=== PATIENT | female | born 1940 | race Caucasian/White ===

== ENCOUNTER 2016-12-25 09:47 | Outpatient (CLI) | payer MEDICARE, BC ==
--- NOTE | 2016-12-25 13:39 | Ultrasound Report ---
COMPLETE ABDOMINAL ULTRASOUND: 12/25/2016 CLINICAL HISTORY: Hepatomegaly new onset. The patient has normal LFTs. The patient also has negative test for hepatitis C. TECHNIQUE: Real-time scanning was performed with insurance account representative static images obtained. FINDINGS: The liver appears mildly enlarged with a length of 16.2 cm. Parenchymal pattern is mildly hyperechoic suggestive of benign fatty infiltration of the liver. The examination is negative for masses. Normal hepatopetal flow is noted. Gallbladder is normal without wall thickening or stones. The common hepatic and common bile ducts are mildly dilated with a diameter of 7 mm. This mild distention is nonspecific. No intrahepatic biliary dilatation is associated with it. No obvious obstruction is seen involving the distal common bile duct in its intrapancreatic portion. A contrast enhanced CT exam of the liver and pancreas will be helpful to further exclude an abnormality affecting the distal common bile duct. The pancreas appears mildly prominent with heterogeneous parenchymal pattern especially in its anterior aspect. This parenchymal pattern probably is a result of atypical benign fatty infiltration. Recommend a noncontrast and contrast enhanced CT exam of the pancreas to further confirm the benign origin of this finding and to exclude the possibility of inflammation involving the pancreas. The right kidney measures 9.9 cm without pyelocaliceal system distention. The left kidney measures 10.2 cm. There is a small cyst involving the lateral aspect of the left kidney measuring 2.6 cm by 1.9 cm by 1.7 cm. The spleen is normal in size and parenchymal pattern with a length of 7.7 cm. The abdominal aorta has normal diameters. Proximally, its diameter is 1.6 cm, in the mid aspect its diameter is 1.8 cm and in the distal aspect its diameter is 1.2 cm. Inferior vena cava appears normal. IMPRESSION: 1. MILD HEPATOMEGALY WITH THE PARENCHYMAL PATTERN SUGGESTIVE OF BENIGN FATTY INFILTRATION OF THE LIVER. 2. PANCREAS APPEARS MILDLY ENLARGED WITH A HETEROGENEOUS PARENCHYMAL PATTERN. ALSO, THERE IS MILD NONSPECIFIC DISTENTION OF THE COMMON HEPATIC AND COMMON BILE DUCTS WITHOUT INTRAHEPATIC BILIARY DILATATION. THESE FINDINGS ARE NONSPECIFIC. RECOMMEND NONCONTRAST AND CONTRAST ENHANCED CT EXAM OF THE LIVER AND PANCREAS FOR FURTHER EVALUATION. 3. BENIGN LEFT RENAL CYST IS NOTED MEASURING 2.6 CM BY 1.9 CM BY 1.7 CM. JOB #: [id number] EXT JOB #: [id number] [facility]
== END 2016-12-25 09:48 | disposition home or self-care (01) ==
LOC: DI 09:47
PROVIDERS: ATTEND Family Medicine
DX: R16.0 Hepatomegaly, not elsewhere classified (principal); Q61.01 Congenital single renal cyst
CPT/HCPCS: 76700

== ENCOUNTER 2021-01-31 11:43 | Outpatient (CLI) | payer MEDICARE, BC ==
[2021-01-31 15:12] LABS: BASOPHILS % (AUTO) 1.2 %; EOSINOPHILS # (AUTO) 0.1 10^3/uL (0.0-0.7); EOSINOPHILS % (AUTO) 1.4 %; HCT - HEMATOCRIT 42.5 % (37.0-47.0); HGB - HEMOGLOBIN 13.7 g/dL (12.0-16.0); LYMPHOCYTES # (AUTO) 1.2 10^3/uL (1.5-3.5); LYMPHOCYTES % (AUTO) 34.2 %; MEAN CORPUSCULAR HEMOGLOBIN 31.2 pg (27.0-31.0); MEAN CORPUSCULAR HGB CONC 32.2 g/dL (32.0-36.0); MEAN CORPUSCULAR VOLUME 96.8 fL (81.0-99.0); MEAN PLATELET VOLUME 10.4 fL (7.9-10.8); MONOCYTES # (AUTO) 0.3 10^3/uL (0.0-1.0); MONOCYTES % (AUTO) 9.6 %; NEUTROPHILS # (AUTO) 1.9 10^3/uL (1.5-6.6); NEUTROPHILS % (AUTO) 53.6 %; PLT - PLATELET COUNT 274 10^3/uL (130-450); RED BLOOD COUNT 4.39 10^6/uL (4.20-5.40); RED CELL DISTRIBUTION WIDTH 12.3 % (12.0-15.0); WHITE BLOOD COUNT 3.5 x10^3/uL (4.8-10.8)
[2021-01-31 15:55] LABS: ALBUMIN 4.7 g/dL (3.2-5.5); ALBUMIN/GLOBULIN RATIO 1.5 (1.0-2.2); ALKALINE PHOSPHATASE 55 IU/L (42-121); ALT ALANINE AMINOTRANSFERASE 19 IU/L (10-60); AST ASPARTATE AMINOTRANSFERASE 24 IU/L (10-42); BUN - BLOOD UREA NITROGEN 16 mg/dL (6-20); CALCIUM 10.4 mg/dL (8.5-10.3); CARBON DIOXIDE - CO2 29 mmol/L (21-32); CHLORIDE 98 mmol/L (101-111); CHOL/HDL RATIO 2.9 (<4.4); CHOLESTEROL 287 mg/dL; CREATININE 0.7 mg/dL (0.4-1.0); GFR - MDRD 81 (>89); GLUCOSE 92 mg/dL (70-100); HDL CHOLESTEROL 100 mg/dL; LDL CHOLESTEROL,CALCULATED 174 mg/dL; LDL/HDL RATIO 1.7 (<4.4); POTASSIUM 4.2 mmol/L (3.5-5.0); SODIUM 136 mmol/L (135-145); TOTAL PROTEIN 7.8 g/dL (6.7-8.2); TRIGLYCERIDES 63 mg/dL; VLDL CHOLESTEROL 13 mg/dL
== END 2021-01-31 11:44 | disposition home or self-care (01) ==
LOC: LAB.S 11:43
PROVIDERS: ATTEND Internal Medicine
DX: C44.91 Basal cell carcinoma of skin, unspecified (principal); M19.90 Unspecified osteoarthritis, unspecified site; M25.50 Pain in unspecified joint; H91.90 Unspecified hearing loss, unspecified ear; I10 Essential (primary) hypertension; Z13.6 Encounter for screening for cardiovascular disorders; Z79.899 Other long term (current) drug therapy
CPT/HCPCS: 36415; 80053; 80061; 82306; 83721; 84443; 85025

== ENCOUNTER 2021-06-20 15:02 | Outpatient (CLI) | payer MEDICARE, BC ==
--- NOTE | 2021-06-21 14:01 | Mammography Report ---
BILATERAL DIGITAL SCREENING MAMMOGRAM 3D/2D WITH CLEAVAGE: 06/20/2021 CLINICAL: Routine screening. Family history of breast cancer. Comparison is made to exams dated: 04/13/2018 mammogram, 12/23/2015 mammogram, 08/04/2014 mammogram, mammogram, and 07/23/2012 mammogram - [facility]. The tissue of both breasts is predominantly fatty. No significant masses, calcifications, or other findings are seen in either breast. There has been no significant interval change. IMPRESSION: NEGATIVE There is no mammographic evidence of malignancy. A 1 year screening mammogram is recommended. This exam was interpreted at Station ID: [id number]. NOTE: For mammograms, a report in lay terms will be sent to the patient. Approximately 15% of breast malignancies will not be visualized mammographically. In the management of a palpable breast mass, a negative mammogram must not discourage biopsy of a clinically suspicious lesion. Electronically Signed By: Jose Solomon acr/penrad:06/20/2021 16:01:16 ACR BI-RADS Category 1: Negative 3341F PARENCHYMAL PATTERN: (F) - The breast(s) demonstrate(s) diffuse fatty replacement. BI-RADS CATEGORY: (1) - 1 RECOMMENDATION: (ANNUAL) - Recommend routine annual screening mammography. [id number] 1 year screening LATERALITY: (B)
== END 2021-06-20 15:03 | disposition home or self-care (01) ==
LOC: DI.S 15:02
PROVIDERS: ATTEND Internal Medicine
DX: Z12.31 Encounter for screening mammogram for malignant neoplasm of breast (principal); Z80.3 Family history of malignant neoplasm of breast

== ENCOUNTER 2022-02-07 10:08 | Outpatient (CLI) | payer MEDICARE, BC ==
[2022-02-07 15:08] LABS: BASOPHILS % (AUTO) 0.8 %; EOSINOPHILS # (AUTO) 0.1 10^3/uL (0.0-0.7); EOSINOPHILS % (AUTO) 3.3 %; HCT - HEMATOCRIT 42.4 % (37.0-47.0); HGB - HEMOGLOBIN 13.9 g/dL (12.0-16.0); LYMPHOCYTES # (AUTO) 1.5 10^3/uL (1.5-3.5); LYMPHOCYTES % (AUTO) 42.3 %; MEAN CORPUSCULAR HEMOGLOBIN 31.7 pg (27.0-31.0); MEAN CORPUSCULAR HGB CONC 32.8 g/dL (32.0-36.0); MEAN CORPUSCULAR VOLUME 96.6 fL (81.0-99.0); MEAN PLATELET VOLUME 10.5 fL (7.9-10.8); MONOCYTES # (AUTO) 0.4 10^3/uL (0.0-1.0); MONOCYTES % (AUTO) 11.1 %; NEUTROPHILS # (AUTO) 1.5 10^3/uL (1.5-6.6); NEUTROPHILS % (AUTO) 42.5 %; PLT - PLATELET COUNT 255 10^3/uL (130-450); RED BLOOD COUNT 4.39 10^6/uL (4.20-5.40); RED CELL DISTRIBUTION WIDTH 12.3 % (12.0-15.0); WHITE BLOOD COUNT 3.6 x10^3/uL (4.8-10.8)
[2022-02-07 15:21] LABS: ALBUMIN 4.5 g/dL (3.2-5.5); ALBUMIN/GLOBULIN RATIO 1.3 (1.0-2.2); ALKALINE PHOSPHATASE 62 IU/L (42-121); ALT ALANINE AMINOTRANSFERASE 22 IU/L (10-60); AST ASPARTATE AMINOTRANSFERASE 23 IU/L (10-42); BUN - BLOOD UREA NITROGEN 18 mg/dL (6-20); CALCIUM 10.9 mg/dL (8.5-10.3); CARBON DIOXIDE - CO2 31 mmol/L (21-32); CHLORIDE 100 mmol/L (101-111); CHOL/HDL RATIO 2.7 (<4.4); CHOLESTEROL 259 mg/dL; CREATININE 0.7 mg/dL (0.4-1.0); GFR - MDRD 81 (>89); GLUCOSE 89 mg/dL (70-100); HDL CHOLESTEROL 96 mg/dL; LDL CHOLESTEROL,CALCULATED 151 mg/dL; LDL/HDL RATIO 1.6 (<4.4); POTASSIUM 4.7 mmol/L (3.5-5.0); SODIUM 139 mmol/L (135-145); TOTAL PROTEIN 7.9 g/dL (6.7-8.2); TRIGLYCERIDES 58 mg/dL; VLDL CHOLESTEROL 12 mg/dL
[2022-02-07 15:28] LABS: THYROID STIMULATING HORMONE 0.85 uIU/mL (0.34-5.60)
== END 2022-02-07 10:09 | disposition home or self-care (01) ==
LOC: LAB.S 10:08
PROVIDERS: ATTEND Internal Medicine
DX: C44.91 Basal cell carcinoma of skin, unspecified (principal); R10.9 Unspecified abdominal pain; I10 Essential (primary) hypertension; R20.0 Anesthesia of skin; Z79.899 Other long term (current) drug therapy; R26.89 Other abnormalities of gait and mobility
CPT/HCPCS: 36415; 80053; 80061; 82607; 83721; 84443; 85025

== ENCOUNTER 2023-06-12 08:00 | Outpatient (CLI) | payer MEDICARE, BC ==
--- NOTE | 2023-06-12 16:25 | XRAY Report ---
PROCEDURE: Hip 2 View RT INDICATIONS: RIGHT HIP PAIN TECHNIQUE: 2 views of the hip were acquired. COMPARISON: None. FINDINGS: Bones: No fractures or dislocations. Severe degenerative changes of the right hip with severe joint space narrowing, subchondral sclerosis and marginal spurring. Moderate to severe degenerative change s of the left hip. No suspicious bony lesions. Degenerative changes of the visualized lower lumbar spine and pubic symphysis. Soft tissues: No suspicious soft tissue calcifications or masses. IMPRESSION: Severe degenerative changes of the right hip and moderate to severe of the left hip. Reviewed by: Jaxon Sorenson MD on 06/12/2023 4:23 PM PST Approved by: Jaxon Sorenson MD on 06/12/2023 4:23 PM PST Station ID: [id number]
== END 2023-06-12 23:59 | disposition home or self-care (01) ==
LOC: DI.WOS 08:00
PROVIDERS: ATTEND Orthopaedic Surgery
DX: M16.0 Bilateral primary osteoarthritis of hip (principal)

== ENCOUNTER 2023-06-19 08:00 | Outpatient (CLI) | payer MEDICARE, BC ==
--- NOTE | 2023-06-19 21:11 | XRAY Report ---
PROCEDURE: Shoulder 3 View RT INDICATIONS: RIGHT SHOULDER PAIN TECHNIQUE: 3 views of the shoulder were acquired. COMPARISON: None FINDINGS: Bones: No fractures or dislocations. No suspicious bony lesions. Visualized ribs appear intact. M oderate severe glenohumeral joint space narrowing with inferior marginal osteophyte. Generalized decr eased osseous mineralization present. Soft tissues: No suspicious soft tissue calcifications. IMPRESSION: Moderate to severe glenohumeral osteoarthritis Reviewed by: Ezra Coleman MD on 06/19/2023 8:10 PM [place] Approved by: Ezra Coleman MD on 06/19/2023 8:10 PM [place] Station ID: [id number]
== END 2023-06-19 23:59 | disposition home or self-care (01) ==
LOC: DI.WOS 08:00
PROVIDERS: ATTEND Orthopaedic Surgery
DX: M19.011 Primary osteoarthritis, right shoulder (principal)

== ENCOUNTER 2023-11-18 11:01 | Emergency (ER) | payer MEDICARE, BC ==
--- NOTE | 2023-11-18 13:35 | ED Physician Documentation ---
History of Present Illness - Stated complaint Stated Complaint: RT HIP,LEG PX/POST OP - Chief complaint Chief Complaint: Ext Problem - History obtained from History obtained from: Patient, Family - History of Present Illness Timing: How many weeks ago (1) Pain level max: 8 Pain level now: 8 - Additonal information Additional information: 83-year-old female status post a right total hip replacement at [facility] on November 01. She saw her orthopedist 3 days ago with normal x-rays. Has had increasing pain over the past 1 to 2 weeks. She states swelling to the leg. Concerned about possible blood clot. She is on oxycodone 2.5 mg in the morning and 5 mg at night. Worse with walking, better with rest. She does not have any fevers. No drainage from the wound. Her orthopedist 3 days ago said that the pain is part of her normal healing process. Review of Systems Constitutional: denies: Fever, Chills GI: denies: Vomiting, Diarrhea Skin: denies: Rash Musculoskeletal: denies: Neck pain, Back pain Neurologic: denies: Headache PD PAST MEDICAL HISTORY - Past Medical History Past Medical History: Yes Cardiovascular: High cholesterol - Past Surgical History Past Surgical History: Yes Ortho: Hip replacement - Present Medications Home Medications: Ambulatory Orders Medication Instructions Recorded Confirmed Lisinopril [Zestril] 40 mg PO DAILY 11/18/23 11/18/23 hydroCHLOROthiazide [Hydrodiuril] 12.5 mg PO DAILY 11/18/23 11/18/23 oxyCODONE [Roxicodone] 5 - 10 mg PO Q6H PRN #20 tablet 11/18/23 MDD 6 - Allergies Allergies/Adverse Reactions: Allergies Allergy/AdvReac Type Severity Reaction Status Date / Time No Known Drug Allergies Allergy Verified 11/18/23 11:30 - Social History Does the pt smoke?: No Smoking Status: Never smoker Does the pt drink ETOH?: Yes ETOH Use: Wine Does the pt have substance abuse?: No - Immunizations Immunizations are current?: Yes PD ED PE NORMAL - Vitals Vital signs reviewed: Yes - General General: Alert and oriented X 3 - HEENT HEENT: Moist mucous membranes - Derm Derm: Warm and dry - Extremities Extremities: Other (R hip - No signs of infection over the right hip. Does have some pain with range of motion. No drainage. There is bruising. There is swelling to the right leg. Neurovascular intact. Most of the pain is with ambulation and active range of motion. Neurovascular intact) - Neuro Neuro: Alert and oriented X 3 Results - Vitals Vitals: Vital Signs - 24 hr 11/18/23 11/18/23 11:26 13:45 Temperature 36.7 C Heart Rate 92 100 Respiratory 16 16 Rate Blood Pressure 172/66 H 174/76 H O2 Saturation 99 100 - Rads (name of study) Right lower extremity duplex ultrasound Relevant Findings:: Final report received, See rad report PD Medical Decision Making - ED course Complexity details: reviewed results, re-evaluated patient, considered differential, d/w patient ED course: 83-year-old female with postoperative hip pain status post a hip replacement approximately 2-1/2 weeks ago at [facility]. Saw her orthopedist with negative x-rays 3 days ago. Feels that this pain is secondary to her normal healing. She is concerned about a blood clot. Ultrasound was ordered, negative for DVT. She is likely underdosed on her pain medication, 2.5 mg of oxycodone in the morning and 5 mg at night. Will increase her oxycodone for home. Continue to use her walker and continue physical therapy. No indication to repeat x-rays today as her pain has not significantly changed from when she was seen 3 days ago by her orthopedist. Patient and family counseled regarding signs and symptoms for which I believe and urgent re-evaluation would be necessary. Patient with good understanding of and agreement to plan and is comfortable going home at this time This document was made in part using voice recognition software. While efforts are made to proofread this document, sound alike and grammatical errors may occur. Departure - Departure Disposition: 01 Home, Self Care Clinical Impression: Postoperative pain Condition: Good Instructions: ED Post Op Pain Follow-Up: Mery Jean-Baptiste MD [Primary Care Provider] - Prescriptions: oxyCODONE [Roxicodone] 5 - 10 mg PO Q6H PRN #20 tablet MDD 6 PRN Reason: pain Comments: Your prescriptions sent to [facility] in [place]. Your ultrasound does not show any evidence of DVT today. Please follow-up with your doctor and orthopedist for further care. Please return if you worsen. I am prescribing a short course of narcotic pain medication for you. These are potentially dangerous and addictive medications that should be used carefully. These medications may constipate you. Take an rygd-iyk-[id number] stool softener (docusate) twice daily with plenty of water while taking these medications. If you go 24 hours without a bowel movement, take [id number] miralax, per package instructions. Do not drink or drive while taking these medications. If you received narcotic or sedating medications while in the emergency department, do not drive for 24 hours. Store this medication in a safe, secure place and out of reach of children. It is a violation of federal law to give or sell this medication to another person or to use in a manner other than prescribed. The ED will not refill narcotic prescriptions, including prescriptions lost or stolen. To dispose of unwanted medications: 1. [facility] at [address] in [place] has a medication drop box. They accept prescription medications (in pill form) Sunday through Sunday 9:00 a.m. to 5:00 p.m. 2. The [facility] [place] [employer] accepts prescription medications (in pill form only) for disposal year round. Call for more information. 3. Contact the [facility] for the next [facility] sponsored prescription drug collection event. , [phone], or [phone]; Forms: PCP List Discharge Date/Time: 11/18/23 13:45
[2023-11-18] MEDS: oxyCODONE 5 MG TABLET PO STA (13:39)
--- NOTE | 2023-11-18 13:43 | Ultrasound Report ---
PROCEDURE: Duplex Ext Veins Right INDICATIONS: R LE swelling, pain TECHNIQUE: Real-time imaging, as well as color and pulse Doppler interrogation, were performed of th e lower extremity deep veins from the inguinal ligament to the popliteal fossa. Attempted visualizati on of the calf veins was performed. COMPARISON: None. FINDINGS: The deep veins are normally compressible, and free of intraluminal thrombus. Color and pu lse Doppler demonstrate normal phasic intraluminal flow. There is normal augmentation response to di stal compression maneuver. IMPRESSION: No deep venous thrombosis of the visualized lower extremity. Reviewed by: Ezra Coleman MD on 11/18/2023 12:41 PM [facility]STAL Approved by: Ezra Coleman MD on 11/18/2023 12:41 PM [facility] Station ID: [id number]
[2023-11-18 13:47] VITALS: BP 174/76; O2SAT 100
== END 2023-11-18 13:45 | disposition home or self-care (01) ==
LOC: ED 11:01
DX: G89.18 Other acute postprocedural pain (principal); M25.551 Pain in right hip; E78.00 Pure hypercholesterolemia, unspecified; Z96.641 Presence of right artificial hip joint; Z79.899 Other long term (current) drug therapy
CPT/HCPCS: 93971; 99283; 99284; A9270

== ENCOUNTER 2023-11-19 14:56 | Outpatient (CLI) | payer MEDICARE, BC | END 2023-11-19 22:25 | disposition critical access hospital (66) | LOC: EMS 14:56 | DX: M25.551 Pain in right hip (principal); M79.89 Other specified soft tissue disorders; W18.11XA Fall from or off toilet without subsequent striking against object, initial encounter; Y92.002 Bathroom of unspecified non-institutional (private) residence as the place of occurrence of the external cause; Z96.641 Presence of right artificial hip joint | CPT/HCPCS: A0425; A0427 ==

== ENCOUNTER 2023-11-19 15:27 | Emergency (ER) | payer MEDICARE, BC ==
--- NOTE | 2023-11-19 15:30 | ED Physician Documentation ---
PD HPI LOWER EXT INJURY - Stated complaint Stated Complaint: HIP PX - History obtained from History obtained from: Patient, EMS - History of Present Illness PD HPI LOW EXT INJURY LOCATION: Right - Additional information Additional information: She had a hip replacement, anterior approach at [facility] on November 01. 4 days ago she fell and has had progressive difficulty walking. She did not fall on the hip though she says, she more fell right on her rear end. She was seen here yesterday and had a DVT ultrasound that was negative. She declines pain medication on initial evaluation having had pain medication from EMS and is comfortable at this time. PD PAST MEDICAL HISTORY - Past Medical History Cardiovascular: High cholesterol - Past Surgical History Past Surgical History: Yes Ortho: Hip replacement - Present Medications Home Medications: Ambulatory Orders Medication Instructions Recorded Confirmed Lisinopril [Zestril] 40 mg PO DAILY 11/18/23 11/19/23 hydroCHLOROthiazide [Hydrodiuril] 12.5 mg PO DAILY 11/18/23 11/19/23 oxyCODONE [Roxicodone] 5 - 10 mg PO Q6H PRN #20 tablet 11/18/23 11/19/23 MDD 6 Acetaminophen [Tylenol] 1 tab PO PRN PRN 11/19/23 11/19/23 Aspirin [[place] Aspirin] 1 tab PO DAILY 11/19/23 11/19/23 - Allergies Allergies/Adverse Reactions: Allergies Allergy/AdvReac Type Severity Reaction Status Date / Time No Known Drug Allergies Allergy Verified 11/19/23 15:36 - Social History Does the pt smoke?: No Smoking Status: Never smoker Does the pt drink ETOH?: Yes Does the pt have substance abuse?: No - Immunizations Immunizations are current?: Yes PD ED PE NORMAL - Vitals Vital signs reviewed: Yes - General General: Alert and oriented X 3, No acute distress - Extremities Extremities: Other (Quite tender over the right hip. There is some external rotation and slight shortening. The knee and ankle are nontender.) - Neuro Neuro: Alert and oriented X 3 - Psych Psych: Normal mood Results - Vitals Vitals: Vital Signs - 24 hr 11/19/23 11/19/23 15:30 17:50 Temperature 36.6 C Heart Rate 99 94 Respiratory 19 12 Rate Blood Pressure 161/80 H 187/93 H O2 Saturation 96 95 Oxygen O2 Source Room air - Rads (name of study) X-ray R hip/femur Relevant Findings:: Final report received (X-ray of the right hip and femur demonstrates a minimally displaced proximal femoral shaft fracture to the lesser trochanter without evidence of hardware displacement.), EMP independent interpretation of test PD Medical Decision Making - ED course ED course: 83-year-old woman with hip pain, recent hip replacements and had a fall on her buttocks a few days ago. Now appears to have an x-ray a periprosthetic hip fracture of the Lesser trochanter medially. I discussed the case by phone with our orthopedist, Dr. Botello who did view the images. He feels he should probably be transferred back to [facility] for evaluation for potential longer prosthetic. Call out to [facility] at approximately 4:20 PM for transfer. Excepted to [facility] by the hospitalist at 6:53 PM. Cobras are completed and she is stable for transport. Her blood pressure has been trending up and I will give her a dose of her lisinopril. Departure - Departure Disposition: 02 Transfer Acute Care Hosp Clinical Impression: Periprosthetic hip fracture Condition: Stable
--- NOTE | 2023-11-19 16:23 | XRAY Report ---
PROCEDURE: Hip w/Pelvis 2-3V RT INDICATIONS: hip inj/leg inj TECHNIQUE: One views of the hip were acquired. COMPARISON: X-ray hip 06/12/2023 FINDINGS: Bones: No fractures or dislocations. No suspicious bony lesions. Right hip arthroplasty. Hardware is intact without evidence of hardware fracture or periprosthetic lucency to suggest loosening. Mode rate left hip arthritic change. Soft tissues: No suspicious soft tissue calcifications or masses. IMPRESSION: No visualized acute fracture or dislocation. However, occult injury cannot be excluded. Recommend jonh rt interval imaging follow-up in 7-10 days as clinically indicated for additional evaluation. Reviewed by: Annie Hunter MD on 11/19/2023 4:22 PM PDT Approved by: Annie Hunter MD on 11/19/2023 4:22 PM PDT Station ID: [id number]
--- NOTE | 2023-11-19 16:28 | XRAY Report ---
PROCEDURE: Femur 2+V RT INDICATIONS: hip inj/leg inj TECHNIQUE: 2 views of the femur were acquired. COMPARISON: X-ray hip 11/18/2022 FINDINGS: Bones: Right hip arthroplasty. There is fracture lucency with minimal displacement identified jaime sing the medial cortex of the proximal femur. Questionable lucency extending into the lesser trochant er. Soft tissues: No suspicious soft tissue calcifications or masses. IMPRESSION: Minimally displaced fracture in the proximal femoral shaft extending to the lesser trochanter. Arthro plasty hardware appears intact without displacement. Reviewed by: Annie Hunter MD on 11/19/2023 4:27 PM PDT Approved by: Annie Hunter MD on 11/19/2023 4:27 PM PDT Station ID: [id number]
[2023-11-19] MEDS: HYDROmorphone 1 MG/ML CARPUJECT IVP STA (16:39)
[2023-11-19] MEDS: ONDANSETRON 4 MG/2 ML VIAL IVP STA (18:26)
[2023-11-19] MEDS: lisinopriL 5 MG TABLET PO STA (19:05)
[2023-11-19 22:11] VITALS: BP 162/68; O2SAT 95
== END 2023-11-19 22:31 | disposition short-term general hospital (02) ==
LOC: ED 15:27
DX: S72.391A Other fracture of shaft of right femur, initial encounter for closed fracture (principal); M97.01XA Periprosthetic fracture around internal prosthetic right hip joint, initial encounter; W18.39XA Other fall on same level, initial encounter; E78.00 Pure hypercholesterolemia, unspecified
CPT/HCPCS: 73502; 73552; 96374; 96375; 99285; A9270; J1170

== ENCOUNTER 2023-12-19 20:47 | Outpatient (CLI) | payer MEDICARE, BC | END 2023-12-19 20:48 | disposition critical access hospital (66) | LOC: EMS 20:47 | DX: M25.561 Pain in right knee (principal); M79.651 Pain in right thigh; W01.0XXA Fall on same level from slipping, tripping and stumbling without subsequent striking against object, initial encounter; Y93.01 Activity, walking, marching and hiking; Y92.009 Unspecified place in unspecified non-institutional (private) residence as the place of occurrence of the external cause; Z79.01 Long term (current) use of anticoagulants | CPT/HCPCS: A0425; A0427 ==

== ENCOUNTER 2023-12-19 21:19 | Emergency (ER) | payer MEDICARE, BC ==
--- NOTE | 2023-12-19 21:24 | ED Physician Documentation ---
PD HPI LOWER EXT INJURY - Stated complaint Stated Complaint: GLF, RT KNEE/THIGH PAIN, HIP SURG HX - History obtained from History obtained from: Patient, EMS - Additional information Additional information: In the end of October she had a hip replacement and then fell about a month ago with a periprosthetic hip fracture. She went to [place] where per her description sounds like she had a longer prosthesis replacement. This evening she was getting up from a chair and is not sure why she fell but she did. She did not blackout and was 100% sure she did not hit her head (she is on Eliquis). The only spot of pain is above the right knee. She received Toradol from EMS with good relief for now. I clarified with the patient, it sounds like the reason for the Eliquis is postoperative DVT prevention. PD PAST MEDICAL HISTORY - Past Medical History Cardiovascular: High cholesterol - Past Surgical History Past Surgical History: Yes Ortho: Hip replacement - Present Medications Home Medications: Ambulatory Orders Medication Instructions Recorded Confirmed Lisinopril [Zestril] 40 mg PO DAILY 11/18/23 11/19/23 hydroCHLOROthiazide [Hydrodiuril] 12.5 mg PO DAILY 11/18/23 11/19/23 oxyCODONE [Roxicodone] 5 - 10 mg PO Q6H PRN #20 tablet 11/18/23 11/19/23 MDD 6 Acetaminophen [Tylenol] 1 tab PO PRN PRN 11/19/23 11/19/23 Aspirin [[place] Aspirin] 1 tab PO DAILY 11/19/23 11/19/23 - Allergies Allergies/Adverse Reactions: Allergies Allergy/AdvReac Type Severity Reaction Status Date / Time No Known Drug Allergies Allergy Verified 12/19/23 21:28 - Social History Does the pt smoke?: No Smoking Status: Never smoker Does the pt drink ETOH?: Yes Does the pt have substance abuse?: No - Immunizations Immunizations are current?: Yes - POLST Patient has POLST: No PD ED PE NORMAL - Vitals Vital signs reviewed: Yes - General General: Alert and oriented X 3, No acute distress - HEENT HEENT: PERRL, EOMI - Neck Neck: Supple, no meningeal sign, No bony TTP - Respiratory Respiratory: No respiratory distress - Abdomen Abdomen: Non tender - Derm Derm: Normal color, Warm and dry - Extremities Extremities: Other (She is keeping the right knee bent slightly and cannot range it. It does appear shortened but it has been so hard to say. She is tender above the right knee joint without obvious deformity. Normal pedal pulses and sensation. The right hip is nontender.) - Neuro Neuro: Alert and oriented X 3, Normal speech Results - Vitals Vitals: Vital Signs - 24 hr 12/19/23 21:24 Temperature 37.5 C Heart Rate 101 H Respiratory 18 Rate Blood Pressure 151/88 H O2 Saturation 97 Oxygen O2 Source Room air - Labs Labs: Laboratory Tests 12/19/23 12/19/23 12/19/23 22:24 22:24 22:24 WBC 7.4 RBC 3.18 L Hgb 9.3 L Hct 31.3 L MCV 98.4 MCH 29.2 MCHC 29.7 L RDW 13.7 Plt Count 360 MPV 9.5 Neut # (Auto) 5.6 Lymph # (Auto) 1.0 L [place] # (Auto) 0.5 Eos # (Auto) 0.2 Baso # (Auto) 0.0 Absolute Nucleated RBC 0.00 Nucleated RBC % 0.0 PT 13.2 H INR 1.2 Sodium 133 L Potassium 4.1 Chloride 100 L Carbon Dioxide 24 Anion Gap 9.0 BUN 15 Creatinine 0.6 Estimated GFR (MDRD) 96 Glucose 99 Calcium 9.9 Total Bilirubin 0.3 AST 17 ALT 16 Alkaline Phosphatase 95 Total Protein 6.8 Albumin 3.9 Globulin 2.9 Albumin/Globulin Ratio 1.3 - Rads (name of study) X-rays of the right knee and femur demonstrate a moderately displaced periprosthetic mid femoral shaft fracture Relevant Findings:: Final report received, EMP independent interpretation of test PD Medical Decision Making - ED course ED course: She presents with an isolated right leg injury after a fall and recent revision of the hip prosthesis and is found to have a angulated and shortened fracture just distal to her now Longer prosthesis with cerclage wires. Discussed case by phone with our on-call orthopedist Dr. Botello who feels she should be transferred back to [facility] for tertiary care and they were called at 10:23 PM Notified fairly quickly thereafter that they have no beds available and do not anticipate any beds in the near future. I asked our health community development officer to start looking at other tertiary facilities as well starting with [facility]. In the meantime I did put in routine orders presuming she may be here for quite some time boarding including her home meds and as needed's but held the Eliquis as presumed any surgeon would want that washed out prior to surgery. Care to Dr. Baugh at 11 PM shift change pending callback from tertiary facility for transfer. Departure - Departure Disposition: 02 Transfer Acute Care Hosp Clinical Impression: Lay-prosthetic femur fracture at tip of prosthesis Condition: Serious
[2023-12-19 22:29] LABS: BASOPHILS % (AUTO) 0.4 %; EOSINOPHILS # (AUTO) 0.2 10^3/uL (0.0-0.7); EOSINOPHILS % (AUTO) 2.7 %; HCT - HEMATOCRIT 31.3 % (37.0-47.0); HGB - HEMOGLOBIN 9.3 g/dL (12.0-16.0); LYMPHOCYTES % (AUTO) 13.6 %; MEAN CORPUSCULAR HEMOGLOBIN 29.2 pg (27.0-31.0); MEAN CORPUSCULAR HGB CONC 29.7 g/dL (32.0-36.0); MEAN CORPUSCULAR VOLUME 98.4 fL (81.0-99.0); MEAN PLATELET VOLUME 9.5 fL (7.9-10.8); MONOCYTES # (AUTO) 0.5 10^3/uL (0.0-1.0); MONOCYTES % (AUTO) 7.3 %; NEUTROPHILS # (AUTO) 5.6 10^3/uL (1.5-6.6); NEUTROPHILS % (AUTO) 75.7 %; PLT - PLATELET COUNT 360 10^3/uL (130-450); RED BLOOD COUNT 3.18 10^6/uL (4.20-5.40); RED CELL DISTRIBUTION WIDTH 13.7 % (12.0-15.0); WHITE BLOOD COUNT 7.4 x10^3/uL (4.8-10.8)
[2023-12-19] MEDS: D5.45NS W/20 MEQ KCL 1,000 ML IV STA (22:29)
[2023-12-19] MEDS ORDERED: ONDANSETRON 4 MG/2 ML VIAL IVP PRN (22:30)
[2023-12-19 22:33] LABS: INR 1.2 (0.8-1.2); PT - PROTHROMBIN TIME 13.2 secs (9.9-12.6)
[2023-12-19 22:46] LABS: ALBUMIN 3.9 g/dL (3.2-5.5); ALBUMIN/GLOBULIN RATIO 1.3 (1.0-2.2); BILIRUBIN,TOTAL 0.3 mg/dL (0.2-1.0); CALCIUM 9.9 mg/dL (8.5-10.3); CREATININE 0.6 mg/dL (0.6-1.3); POTASSIUM 4.1 mmol/L (3.5-4.5); TOTAL PROTEIN 6.8 g/dL (6.4-8.9)
--- NOTE | 2023-12-19 22:48 | XRAY Report ---
PROCEDURE: Femur 2+V RT INDICATIONS: rle inj TECHNIQUE: 2 views of the femur were acquired. COMPARISON: Right femur radiographs 11/19/2023. FINDINGS: Bones: Status post right hip total arthroplasty with interval postsurgical changes including placemen t of cerclage wires since 11/19/2023. Prosthetic elements appear to be in appropriate position. There is moderately displaced fracture of the mid femoral shaft with at least one shaft width lateral displ acement of the distal fracture fragment seen on crosstable lateral view. Soft tissues: No suspicious soft tissue calcifications or masses. Soft tissue edema. IMPRESSION: Periprosthetic fracture of the mid femoral shaft with over one shaft width lateral displacement of di stal fracture fragment. Reviewed by: Lizeth Pham MD, PhD on 12/19/2023 10:46 PM PDT Approved by: Lizeth Pham MD, PhD on 12/19/2023 10:46 PM PDT Station ID: [id number]
--- NOTE | 2023-12-19 22:49 | XRAY Report ---
PROCEDURE: Knee 4+V RT INDICATIONS: r knee inj TECHNIQUE: 5 views of the knee(s) were acquired. COMPARISON: Right femur radiographs 12/19/2023, 11/19/2023. FINDINGS/IMPRESSION: Bones: Redemonstration of moderately displaced periprosthetic mid femoral shaft fracture. No other f racture identified. Soft tissues: No knee joint effusion. No suspicious soft tissue calcifications or masses. Reviewed by: Lizeth Pham MD, PhD on 12/19/2023 10:48 PM PDT Approved by: Lizeth Pham MD, PhD on 12/19/2023 10:48 PM PDT Station ID: [id number]
[2023-12-19] MEDS: PREGABALIN 25 MG CAPSULE PO SCH (22:52)
[2023-12-19] MEDS: ACETAMINOPHEN 500 MG TABLET PO PRN (22:52)
--- NOTE | 2023-12-19 23:18 | ED Physician Documentation ---
ED Addendum - Addendum Addendum: 12/19/23 23:17 d/w [facility] transfer center coordinator Tami who connected me to ATIYA Matias. There are no beds at present. They may call back with an orthopedist, Dr. Loja however it sounds like the surgeon is not available overnight given there are no beds. Patient will board in our ED for now. Possible signout to incoming daytime ED MD at 7am shift change. 12/19/23 23:28 d/w [facility] transfer [place]. orthopedist at [facility] recommends to contact the operating surgeon and transfer patient to [facility] rather than transfer to [facility]. case will remain open for now. If [facility] isn't able to connect with the operating orthopedist, not the production posting clerk, then we will reach back out to [facility] in the morning. 12/20/23 00:12 Dr. Bryant is hospitalist accepting at [facility]. Dr. Loja, orthopedist is on board. 12/20/23 00:14 Disposition transfer [facility] Condition stable Impression 1. femur fracture
[2023-12-19] MEDS: MORPHINE 2 MG/ML CARPUJECT IVP PRN (23:51)
[2023-12-20] MEDS: HYDROmorphone 1 MG/ML CARPUJECT IVP STA (00:36)
[2023-12-20 02:24] VITALS: BP 111/56; O2SAT 97
[2023-12-20] MEDS ORDERED: PANTOPRAZOLE 40 MG TABLET PO SCH (07:00)
[2023-12-20] MEDS ORDERED: lisinopriL 20 MG TABLET PO SCH (09:00)
[2023-12-20] MEDS ORDERED: hydroCHLOROthiazide 25 MG TABLET PO SCH (09:00)
== END 2023-12-20 03:50 | disposition short-term general hospital (02) ==
LOC: EDUNIT# → ED 21:19
DX: S72.301A Unspecified fracture of shaft of right femur, initial encounter for closed fracture (principal); M97.01XA Periprosthetic fracture around internal prosthetic right hip joint, initial encounter; W18.39XA Other fall on same level, initial encounter; E78.00 Pure hypercholesterolemia, unspecified; Z79.01 Long term (current) use of anticoagulants; Z96.641 Presence of right artificial hip joint; Z79.82 Long term (current) use of aspirin; Z79.899 Other long term (current) drug therapy
CPT/HCPCS: 36415; 73552; 73564; 80053; 85025; 85610; 96374; 96375; 99285; A9270; J1170